=== PATIENT | female | born 1955 | race Caucasian/White ===

== ENCOUNTER 2023-06-25 11:42 | Emergency (ER) | payer OTHER ==
[~2023-06-25] VITALS: Ht 162.6 cm; Wt 68.0 kg
[2023-06-25 11:56] VITALS: BP_SYST 144; PULSE 69; RESP 18; TEMP 98.1; O2SAT 99
[2023-06-25 13:16] VITALS: BP_SYST 144; PULSE 69; RESP 18; TEMP 98.1; O2SAT 99
== END 2023-06-25 13:16 | disposition home or self-care (01) ==
LOC: SED 11:42
DX: I16.0 Hypertensive urgency (principal); I10 Essential (primary) hypertension; R51.9 Headache, unspecified; Z79.899 Other long term (current) drug therapy
CPT/HCPCS: 99281

== ENCOUNTER 2023-07-23 08:41 | Emergency (ER) | payer OTHER ==
[~2023-07-23] VITALS: Ht 160 cm; Wt 54.4 kg
[2023-07-23 09:05] VITALS: BP_SYST 204; PULSE 57; RESP 18; TEMP 98.3; O2SAT 98
[2023-07-23] MEDS ORDERED: cloNIDine HCL 0.1 MG TABLET PO ONE (09:15)
[2023-07-23] MEDS ORDERED: AMLO1CAP2 PO (10:20)
[2023-07-23 11:02] VITALS: BP_SYST 123; PULSE 60; RESP 15; TEMP 97.2; O2SAT 95
== END 2023-07-23 11:02 | disposition home or self-care (01) ==
LOC: SED 08:41
DX: I16.0 Hypertensive urgency (principal); I10 Essential (primary) hypertension; Z79.899 Other long term (current) drug therapy
CPT/HCPCS: 93005; 99283